=== PATIENT | female | born 1970 | race Asian ===

== ENCOUNTER → 2017-07-02 | Outpatient (CLI) | payer BC ==
[2017-07-02 10:24] LABS: ADD MAN DIFF? NO
[2017-07-02 10:31] LABS: BASOPHILS % 0.4 % (0.0-2.0); EOSINOPHILS # 0.2 10^3/ul (0.0-0.5); EOSINOPHILS % 3.1 % (0.0-7.0); HEMATOCRIT 40.1 % (37.0-47.0); HEMOGLOBIN 13.2 g/dl (12.0-16.0); LYMPHOCYTES # 2.2 10^3/ul (0.8-2.9); MEAN CORPUSCULAR HEMOGLOBIN 29.8 pg (29.0-33.0); MEAN CORPUSCULAR HGB CONC 32.9 g/dl (32.0-37.0); MEAN CORPUSCULAR VOLUME 90.5 fl (82.0-101.0); MEAN PLATELET VOLUME 10.6 fl (7.4-10.4); MONOCYTE # 0.3 10^3/ul (0.3-0.9); MONOCYTES % 6.7 % (0.0-11.0); NEUTROPHIL # 2.4 10^3/ul (1.6-7.5); NEUTROPHILS % 46.6 % (39.0-77.0); PLATELET COUNT 209 10^3/UL (140-415); RED BLOOD COUNT 4.43 10^6/ul (4.20-5.40); RED CELL DISTRIBUTION WIDTH 11.4 % (11.5-14.5)
[2017-07-02 10:31] LABS: WHITE BLOOD COUNT 5.1 10^3/ul (4.8-10.8)
[2017-07-02 11:01] LABS: ALANINE AMINOTRANSFERASE 24 IU/L (13-69); ALBUMIN 4.4 g/dl (3.3-4.9); ALBUMIN/GLOBULIN RATIO 1.25; ALKALINE PHOSPHATASE 70 IU/L (42-121); ANION GAP 13 (8-16); ASPARTATE AMINO TRANSFERASE 27 IU/L (15-46); BILIRUBIN,INDIRECT 0.4 mg/dl (0-1.1); BILIRUBIN,TOTAL 0.4 mg/dl (0.2-1.3); BLOOD UREA NITROGEN 12 mg/dl (7-20); CALCIUM 9.9 mg/dl (8.4-10.2); CARBON DIOXIDE 29 mmol/L (21-31); CHLORIDE 107 mmol/L (97-110); CHOLESTEROL 233 mg/dl (100-200); CREATININE 0.51 mg/dl (0.44-1.00); GLUCOSE 103 mg/dl (70-220); HDL CHOLESTEROL 57 mg/dl (34-88); LDL CHOLESTEROL,CALCULATED 160 mg/dl; POTASSIUM 4.1 mmol/L (3.5-5.1); SODIUM 145 mmol/L (135-144); TOTAL PROTEIN 7.9 g/dl (6.1-8.1); TRIGLYCERIDES 80 mg/dl (0-149)
[2017-07-02 11:18] LABS: T4 (THYROXINE) 8.7 ug/dl (5.5-11.0)
[2017-07-02 11:31] LABS: THYROID STIMULATING HORMONE 0.719 MIU/L (0.465-4.680)
[2017-07-02 21:27] LABS: RHEUMATOID FACTOR NEGATIVE (NEGATIVE)
[2017-07-03 17:56] LABS: ANA SCREEN POSITIVE (NEGATIVE)
[2017-07-03 19:47] LABS: ANA PATTERN NUCLEOLAR
== END | disposition home or self-care (01) ==
LOC: LAB 09:33
DX: M54.40 Lumbago with sciatica, unspecified side (principal); M47.26 Other spondylosis with radiculopathy, lumbar region
CPT/HCPCS: 72100; 72170; 73520; 80053; 80061; 82652; 84436; 84443; 85025; 85651; 86038; 86430

== ENCOUNTER → 2017-07-16 | Outpatient (CLI) | payer BC ==
[2017-07-16 12:51] LABS: CREATINE KINASE 40 IU/L (23-200)
[2017-07-17 12:13] LABS: CYCLIC CITRULLINATED PEP IGG <16 UNITS
[2017-07-17 16:46] LABS: SMOOTH MUSCLE AB SCREEN POSITIVE (NEGATIVE)
[2017-07-17 17:26] LABS: SMOOTH MUSCLE AB TITER 1:40 titer (<1:20)
[2017-07-17 18:57] LABS: ANA SCREEN POSITIVE (NEGATIVE)
[2017-07-17 20:27] LABS: ANA PATTERN SPECKLED
[2017-07-18 13:25] LABS: ANTI-DNA (DOUBLE STRANDED) <95 U/mL (< 301)
== END | disposition home or self-care (01) ==
LOC: LAB 12:02
DX: M19.90 Unspecified osteoarthritis, unspecified site (principal)
CPT/HCPCS: 82550; 86038; 86200; 86226; 86235; 86255